=== PATIENT | female | born 1960 | race Caucasian/White ===

== ENCOUNTER → 2016-08-19 | Outpatient (CLI) | payer BC ==
[2016-08-19 08:27] LABS: BASOPHILS % (AUTO) 0.2 % (0-2); EOSINOPHILS # (AUTO) 0.3 T/MM3 (0-0.5); EOSINOPHILS % (AUTO) 5.4 % (0-4); HCT - HEMATOCRIT 35.6 % (36-46); HGB - HEMOGLOBIN 12.6 GM/DL (12-16); IMMATURE GRANULOCYTE # (AUTO) 0.01 T/MM3 (0.00-0.03); IMMATURE GRANULOCYTE % (AUTO) 0.2 % (0.0-0.5); LYMPHOCYTES # (AUTO) 1.4 T/MM3 (1-4.8); LYMPHOCYTES % (AUTO) 29.7 % (23-45); MEAN CORPUSCULAR HGB 30.3 UUG (26-34); MEAN CORPUSCULAR HGB CONC(MCHC 35.4 GM/DL (31-37); MEAN CORPUSCULAR VOLUME 85.6 UM3 (80-100); MEAN PLATELET VOLUME 9.6 UM3 (9.4-12.4); MONOCYTES # (AUTO) 0.3 T/MM3 (0-0.8); NEUTROPHILS #(AUTO)-ABSOLUTE 2.8 T/MM3 (1.8-7.7); NEUTROPHILS % (AUTO) 58.5 % (33-66); RED BLOOD COUNT 4.16 M/MM3 (4.00-5.20); WBC - WHITE BLOOD COUNT 4.8 T/MM3 (4.5-11.0)
[2016-08-19 08:36] LABS: ALBUMIN 4.1 G/DL (3.5-5.0); ALBUMIN/GLOBULIN RATIO 1.4 RATIO (1.1-2.2); ALKALINE PHOSPHATASE 83 U/L (38-126); ALT (SGPT) 29 U/L (9-52); ANION GAP 13 MEQ/L (5-15); AST (SGOT) 21 U/L (14-36); BUN/CREATININE RATIO 13 RATIO (6-26); CALCIUM 9.5 MG/DL (8.4-10.2); CHLORIDE 103 MEQ/L (98-107); CO2 - CARBON DIOXIDE 27 MEQ/L (22-30); CREATININE 0.7 MG/DL (0.7-1.2); GLOMERULAR FILTRATION RATE 87; GLUCOSE 110 MG/DL (65-110); LDH 422 U/L (313-618); MAGNESIUM 1.7 MG/DL (1.6-2.3); POTASSIUM 3.4 MEQ/L (3.6-5); SODIUM 143 MEQ/L (134-144); TOTAL PROTEIN 7.1 G/DL (6.3-8.2)
--- NOTE | 2016-08-19 11:15 | DI ---
Indication: ITS.REASON: C34.12 LUNG CA; C64.2 Malignant neoplasm of left kidney, except r PROCEDURE: CT CHEST/ABDOMEN/PELVIS W/O: Encounter: Subsequent Comparison: PET/CT dated July 09, [address] chest, abdomen and pelvis dated September 03, 2015, October 15, 2014 and October 02, 2013 Technique: Axial CT images were performed through the chest, abdomen and pelvis without intravenous contrast. Coronal and sagittal two-dimensional reformats. Automated Exposure Control and Iterative Reconstruction dose reducing techniques were utilized. Findings: Chest: Interval resection of the patient's left upper lobe lung mass with left-sided volume loss. Two right lower lobe pulmonary nodules are seen. One of these is completely new since September 2013 on axial image #32. This measures 9 mm in diameter. This is faintly visible in retrospect on the October 15, 2014 exam measuring 2 mm in size. The more superior nodule on image #31 measures 3 to 4 mm in diameter and has very slowly grown since the 2013 exam. The larger nodule measured only 5 mm in size on the August 2015 comparison study. The other nodule appears slightly larger by 1 mm or less since that time. There is a 5 mm left lower lobe nodule on image #33 which is unchanged dating back to 2013. No new nodules. No pneumonia, pleural effusion or pneumothorax. The remaining central airways are patent. No axillary or mediastinal adenopathy. Heart size is normal. Small pericardial effusion. Great vessels are unremarkable. Thyroid gland appears normal. Abdomen/pelvis: Small hiatal hernia. Prior left nephrectomy. The unenhanced contours of the liver, gallbladder, spleen, pancreas and right adrenal gland are within normal limits. The right kidney appears normal. Surgical clips in the left retroperitoneum. No abdominal or pelvic lymphadenopathy. Bladder is normal. Uterus is surgically absent. Mild sigmoid diverticulosis without acute diverticulitis. No bowel obstruction. The appendix is normal. Bone windows show no lytic or blastic osseous lesions. Impression: 1. Interval left upper lobe lung mass resection. 2. Interval growth of a 9 mm right lower lobe nodule over the past year. This is concerning for metastatic disease despite the lack of metabolic uptake on the recent PET scan. .
== END ==
LOC: IMA 08:03
PROVIDERS: ATTEND Internal Medicine Hematology & Oncology
DX: C34.12 Malignant neoplasm of upper lobe, left bronchus or lung (principal); R91.1 Solitary pulmonary nodule; Z98.890 Other specified postprocedural states; C64.2 Malignant neoplasm of left kidney, except renal pelvis
CPT/HCPCS: 36415; 80053; 83615; 83735; 85025

== ENCOUNTER → 2016-10-07 | Outpatient (CLI) | payer BC ==
[2016-10-07 10:15] LABS: BASOPHILS % (AUTO) 0.5 % (0-2); EOSINOPHILS # (AUTO) 0.1 T/MM3 (0-0.5); EOSINOPHILS % (AUTO) 2.8 % (0-4); HCT - HEMATOCRIT 39.7 % (36-46); HGB - HEMOGLOBIN 13.8 GM/DL (12-16); IMMATURE GRANULOCYTE # (AUTO) 0.02 T/MM3 (0.00-0.03); IMMATURE GRANULOCYTE % (AUTO) 0.5 % (0.0-0.5); LYMPHOCYTES # (AUTO) 1.4 T/MM3 (1-4.8); LYMPHOCYTES % (AUTO) 35.4 % (23-45); MEAN CORPUSCULAR HGB 31.1 UUG (26-34); MEAN CORPUSCULAR HGB CONC(MCHC 34.8 GM/DL (31-37); MEAN CORPUSCULAR VOLUME 89.4 UM3 (80-100); MEAN PLATELET VOLUME 9.7 UM3 (9.4-12.4); MONOCYTES # (AUTO) 0.3 T/MM3 (0-0.8); MONOCYTES % (AUTO) 6.7 % (0-9.0); NEUTROPHILS #(AUTO)-ABSOLUTE 2.1 T/MM3 (1.8-7.7); NEUTROPHILS % (AUTO) 54.1 % (33-66); RED BLOOD COUNT 4.44 M/MM3 (4.00-5.20); WBC - WHITE BLOOD COUNT 3.9 T/MM3 (4.5-11.0)
[2016-10-07 10:29] LABS: ALBUMIN 4.5 G/DL (3.5-5.0); ALBUMIN/GLOBULIN RATIO 1.7 RATIO (1.1-2.2); ALKALINE PHOSPHATASE 73 U/L (38-126); ALT (SGPT) 33 U/L (9-52); ANION GAP 13 MEQ/L (5-15); AST (SGOT) 21 U/L (14-36); BUN/CREATININE RATIO 18 RATIO (6-26); CALCIUM 9.7 MG/DL (8.4-10.2); CHLORIDE 104 MEQ/L (98-107); CO2 - CARBON DIOXIDE 29 MEQ/L (22-30); CREATININE 0.8 MG/DL (0.7-1.2); GLOMERULAR FILTRATION RATE 74; GLUCOSE 93 MG/DL (65-110); LDH 423 U/L (313-618); MAGNESIUM 1.9 MG/DL (1.6-2.3); POTASSIUM 4.3 MEQ/L (3.6-5); SODIUM 146 MEQ/L (134-144); TOTAL PROTEIN 7.2 G/DL (6.3-8.2)
--- NOTE | 2016-10-07 10:59 | DI ---
INDICATION: ITS.REASON: C34.12 LUNG CA; C64.2 RENAL PELVIC CA PROCEDURE: CHEST 2-VIEWS UPRIGHT (PA \T\ LAT) Encounter: Subsequent COMPARISON: Chest CT dated August 19, 2016 FINDINGS: The lungs are radiographically clear. Postoperative changes in the left lung with chronic pleural thickening. There is no pleural effusion or pneumothorax. The known right lower lobe nodule seen by CT is not visualized radiographically. The heart size, mediastinal contours and pulmonary vascularity are unchanged. IMPRESSION: No acute cardiopulmonary disease. .
== END ==
LOC: IMA 09:59
PROVIDERS: ATTEND Internal Medicine Hematology & Oncology
DX: C34.12 Malignant neoplasm of upper lobe, left bronchus or lung (principal); C64.2 Malignant neoplasm of left kidney, except renal pelvis; Z98.890 Other specified postprocedural states
CPT/HCPCS: 36415; 80053; 82378; 83615; 83735; 85025